=== PATIENT | male | born 1980 | race American Indian/Alaskan Native ===

== ENCOUNTER 2017-10-11 03:30 | Emergency (ER) | payer OTHER ==
[2017-10-11 06:43] VITALS: BP 125/88
--- NOTE | 2017-10-11 07:57 | Emergency Department Report ---
ED General Adult HPI - General Chief complaint: Weakness Stated complaint: HYPOTHERMIA Time Seen by Provider: 10/11/17 07:43 Source: patient, EMS Mode of arrival: Stretcher Limitations: No Limitations - History of Present Illness Initial comments: Patient is 36 years old -[place] male brought to the ER by EMS. EMS reported patient was found sleeping on [address]. Patient initial temperature was 95. Patient stated that he was just released from halfway yesterday and he does not have any place to go to. Patient stated that he had history of schizophrenia but he is not on any medication. Patient denied any visual hallucination, or digitalis in addition, suicidal ideation, homicidal ideation. Patient is asking for something to eat. Severity scale (0 -10): 0 - Related Data Allergies Allergy/AdvReac Type Severity Reaction Status Date / Time Unable to Assess Allergy Unverified 10/11/17 06:08 ED Review of Systems ROS: Stated complaint: HYPOTHERMIA Other details as noted in HPI Comment: All other systems reviewed and negative Constitutional: denies: chills, fever Respiratory: denies: cough, shortness of breath, SOB with exertion Cardiovascular: denies: chest pain, palpitations Gastrointestinal: denies: abdominal pain, nausea, vomiting Musculoskeletal: denies: back pain ED Past Medical Hx - Past Medical History Previous Medical History?: No Hx Psychiatric Treatment: Yes (schizophrenia) - Surgical History Past Surgical History?: No - Social History Smoking Status: Never Smoker Substance Use Type: None ED Physical Exam - General Limitations: No Limitations General appearance: alert, in no apparent distress - Head Head exam: Present: atraumatic, normocephalic, normal inspection - Eye Eye exam: Present: normal appearance, PERRL - ENT ENT exam: Present: normal exam, normal orophraynx, mucous membranes moist - Neck Neck exam: Present: normal inspection, full ROM. Absent: tenderness, meningismus - Respiratory Respiratory exam: Present: normal lung sounds bilaterally. Absent: respiratory distress, wheezes, rales, rhonchi, chest wall tenderness - Cardiovascular Cardiovascular Exam: Present: regular rate, normal rhythm, normal heart sounds - GI/Abdominal GI/Abdominal exam: Present: soft, normal bowel sounds. Absent: distended, tenderness, guarding, rebound, rigid, organomegaly, mass, bruit, pulsatile mass , hernia - Extremities Exam Extremities exam: Present: normal inspection, full ROM, normal capillary refill - Back Exam Back exam: Present: normal inspection, full ROM. Absent: tenderness, CVA tenderness (R), CVA tenderness (L), muscle spasm, paraspinal tenderness - Neurological Exam Neurological exam: Present: alert, oriented X3, CN II-XII intact, normal gait, reflexes normal. Absent: motor sensory deficit - Skin Skin exam: Present: warm, intact, normal color. Absent: cyanosis ED Course Vital Signs 10/11/17 10/11/17 10/11/17 03:46 04:45 04:57 Temperature 98.0 F 98 F Pulse Rate 76 Respiratory 18 16 Rate Blood Pressure Blood Pressure 148/105 [Right] O2 Sat by Pulse 98 97 Oximetry 10/11/17 10/11/17 10/11/17 05:00 05:15 05:30 Temperature Pulse Rate 57 L 58 L 60 Respiratory 13 16 14 Rate Blood Pressure 120/80 113/79 112/79 Blood Pressure [Right] O2 Sat by Pulse 97 97 97 Oximetry 10/11/17 10/11/17 10/11/17 05:45 06:00 06:15 Temperature Pulse Rate 59 L 60 59 L Respiratory 15 12 13 Rate Blood Pressure 120/84 108/76 105/72 Blood Pressure [Right] O2 Sat by Pulse 99 97 97 Oximetry 10/11/17 06:30 Temperature Pulse Rate 81 Respiratory 13 Rate Blood Pressure 125/88 Blood Pressure [Right] O2 Sat by Pulse 98 Oximetry ED Medical Decision Making - Lab Data Result diagrams: 10/11/17 08:06 10/11/17 08:06 Critical care attestation.: If time is entered above; I have spent that time in minutes in the direct care of this critically ill patient, excluding procedure time. ED Disposition Clinical Impression: Weakness Disposition: Z-07 ELOPED Is pt being admited?: No Condition: Stable Referrals: ROBERT TREVINO MD [Primary Care Provider] - 3-5 Days
[2017-10-11 08:29] LABS: Basophils % (Auto) 0.8 % (0.0-1.8); Eosinophils % (Auto) 0.9 % (0.0-4.3); Hematocrit 45.6 % (35.5-45.6); Hemoglobin 15.7 gm/dl (11.8-15.2); Lymphocytes # (Auto) 1.7 K/mm3 (1.2-5.4); Lymphocytes % (Auto) 39.1 % (13.4-35.0); Mean Corpuscular HGB Conc 34 % (32-34); Mean Corpuscular Hemoglobin 31 pg (28-32); Mean Corpuscular Volume 91 fl (84-94); Monocytes # (Auto) 0.6 K/mm3 (0.0-0.8); Monocytes % (Auto) 12.7 % (0.0-7.3); Platelet Count 217 K/mm3 (140-440); Red Blood Count 5.02 M/mm3 (3.65-5.03); Red Cell Distribution Width 14.4 % (13.2-15.2)
[2017-10-11 08:46] LABS: Alanine Aminotransferase 19 units/L (7-56); Albumin 3.9 g/dL (3.9-5); BUN/Creatinine Ratio 13; Blood Urea Nitrogen 9 mg/dL (9-20); Calcium 8.6 mg/dL (8.4-10.2); Hemolysis Index 17
== END 2017-10-11 13:19 | disposition left against medical advice (07) ==
LOC: ED 03:30
DX: R53.1 Weakness (principal)
CPT/HCPCS: 36415; 80053; 85025; 93005; 93010; 99284; G0480; 80320